=== PATIENT | female | born 1995 | race Caucasian/White ===

== ENCOUNTER 2020-10-27 12:56 | Emergency (ER) | payer OTHER, SELFPAY ==
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
[2020-10-27 13:03] VITALS: BP 131/70; PULSE 84; RESP 20; TEMP 36.8; O2SAT 99
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
[2020-10-27 14:54] VITALS: PULSE 80; RESP 20; O2SAT 100
== END 2020-10-27 14:40 | disposition home or self-care (01) ==
PROVIDERS: Emergency Provider Emergency Medicine; PCP Nurse Practitioner Family
DX: S16.1XXA Strain of muscle, fascia and tendon at neck level, initial encounter (principal); S40.012A Contusion of left shoulder, initial encounter; V43.02XA Car driver injured in collision with other type car in nontraffic accident, initial encounter
CPT/HCPCS: 72125; 73030; 99284

== ENCOUNTER → 2022-10-12 10:21 | Outpatient (CLI) | payer OTHER, SELFPAY ==
--- NOTE | ~2022-10-12 | US_ITS ---
EXAMINATION: US transvaginal DATE: 10/12/2022 10:44 INDICATION: IUD assessment TECHNIQUE: Multiple endovaginal sonographic images of the pelvis were obtained. COMPARISON: None. FINDINGS: The uterus measures 7.8 x 3.3 cm. The endometrial complex measures 3 mm. The IUD is in expe cted position. The right ovary measures 1.6 x 2.6 x 1.9 cm. The left ovary measures 3.9 x 4.4 x 3.7 c m. There is a 3.4 x 2.8 x 2.9 cm hemorrhagic cyst of the left adnexa. There is normal vascular flow i n the ovaries. There is small amount of likely physiologic free fluid in the pelvis. IMPRESSION: 1. IUD in expected position. Reviewed, dictated and finalized at location F.
== END ==
PROVIDERS: PCP Nurse Practitioner Family; Visit Provider Nurse Practitioner
DX: T83.32XA Displacement of intrauterine contraceptive device, initial encounter (principal)
CPT/HCPCS: 76830

== ENCOUNTER 2023-05-26 00:55 | Day surgery (SDC) | payer OTHER, SELFPAY ==
[2023-05-19 10:44] VITALS: BMI 21.9
--- NOTE | 2023-05-19 10:46 | PC.NURSE ---
Report to the Outpatient Waiting Room, entrance under the green pavilion located off [facility], at time _0830 _ on date _05/25/22_. Planned Procedure Time: 1030__. Time changes happen often and if your time is changed the preop area will call you the afternoon before. - You and your visitor will be asked to self-screen and do not enter if you have any COVID symptoms. - A mask is optional within the hospital at this time. Patients may have clear liquids (water, carbonated beverages, clear teas, apple juice) until 3 hours prior to surgery with a maximum of 20 ounces. - No food from midnight until time of surgery - Infants may have breast milk until 4 hours before surgery, formula 6 hours prior to surgery. - Children will be allowed to drink immediately following surgery. If applicable, please bring a bottle or sippy cup to assist with drinking. Juice, water, soda, and popsicles are readily available. For infants on formula, please bring formula the day of surgery. Pacifiers are allowed. Take the following medications with a SIP of water the morning of surgery: NONE DO NOT STOP ANY OF YOUR OTHER PRESCRIPTION MEDICATIONS PRIOR TO SURGERY ?EXCEPT THE FOLLOWING Medications to discontinue per physician VITAMIN/ SUPPLIMENTS Date to take last dose Please no make-up, nail [place] citizen, hairspray, perfume, deodorant, or body powder the day of surgery. No jewelry (including any body piercings) or valuables the day of surgery, leave them at home. Please take a shower or bath the night before, or the morning of, surgery with an antibacterial soap. Wear comfortable, loose fitting clothing. Children are encouraged to wear pajamas. - Jewelry must be removed prior to entering the operating room. Rings and piercings that are not removed may be cut off. - The hospital will not accept responsibility for valuables. - Please leave all valuables, including medications, at home the day of surgery. If you are going home after surgery, a licensed transit bus driver must drive you home. - NO public transportation without another adult if you receive anesthesia. - We recommend that an adult stay with you for 24 hours following discharge. - We also recommend that you do not drive, make important decision, drink alcoholic beverages, or take any drugs that were not prescribed by your health care provider for at least 24 hours after your discharge time. For Pediatric surgeries, we recommend two adults accompany the child home. Follow any additional instructions given to you from your surgeon. If you or anyone in your household have experienced Covid symptoms in the past week, please notify your surgeon or the nurse liaison at the phone number below for possible testing. Telephone instructions given to _PATIENT_and asked if any additional questions and then verbalized understanding. Patient advised to call surgeon office or pre surgery nurse liaison [phone] if any additional questions.
--- NOTE | 2023-05-26 07:06 | P.PNAN_ITS ---
Anes - Initial Pre Proc Eval Procedure: Operation Date: 05/26/23 10:30 Proposed Procedures p Hysteroscopy with Intrauterine Device Removal - Brenda Miller MD Date/Time: 05/26/23 07:07 Surgeon: Brenda Miller MD Pre Op Diagnosis: Retained IUD Patient Data Age: 27 Gender: F Height: 1.52 m Weight: 51 kg Allergies Allergy/AdvReac Type Severity Reaction Status Date / Time No Known Allergies Allergy Verified 05/19/23 10:39 Home Medications Medication Instructions Recorded Confirmed Type ibuprofen 600 mg tablet (IBU) 600 mg PO Q6H PRN pain #20 tabs 10/27/20 05/19/23 Rx [place] 1 cap PO DAILY 05/19/23 05/19/23 History Rhodiola 1 cap PO DAILY 05/19/23 05/19/23 History magnesium 250 mg tablet 250 mg PO DAILY 05/19/23 05/19/23 History vit#24-iron amino acid 1 tablet PO DAILY 05/19/23 05/19/23 History chelat-folic acid 30 mg-975 mcg tablet valerian root 100 mg capsule 100 mg PO DAILY 05/19/23 05/19/23 History vitamin B complex 1 tablet PO DAILY 05/19/23 05/19/23 History Patient hx anesthesia problems: none Family hx anesthesia problems: none Results Review: All pre-operative results and documents have been reviewed as part of the pre- operative evaluation. [facility] Past Medical History Medical History (Updated 05/26/23 @ 08:53 by Brenda Miller MD) Patient denies significant medical history Social History Social History (System 02/06/23 @ 12:15 by Ovidio Cerna) Smoking status: Never smoker Alcohol intake: current Alcohol use details: 1-2 PER MONTH Substance use: never Living arrangements: with family Anes - Eval Final PreProcedure Day of Procedure 05/26/23 07:07 Patient weight: normal Heart: regular rate and rhythm Lungs: clear to auscultation and normal air movement Airway: Mallampati scale class II Neurological: alert and oriented Last oral intake: >/= 8 hours ASA classification: I Emergent: no Anesthetic plan: proceed Anesthesia type and monitoring: general GIVS and standard monitoring Results Review: All pre-operative results and documents have been reviewed as part of the pre- operative evaluation. Informed Consent: The patient's anesthetic plan and its attendant risks and benefits were discussed with the patient/family/POA. Questions were solicited and answers provided to the satisfaction of the patient/family/POA.
--- NOTE | 2023-05-26 08:51 | P.HP_ITS ---
History of Present Illness History of Present Illness Consent: Risks, benefits, and alternatives have been discussed and questions answered. Patient agrees to proceed with procedure. Chief complaint: Retained IUD Narrative: Sinai Rene is a 27 year old female with retained IUD. Attempts to remove in the office were unsuccessful. It was recommended to undergo hysteroscopic removal. Risks of infection, bleeding and perforation are reviewed. Patient dionte oices understanding and agrees to proceed. [facility] Past Medical History Medical History (Updated 05/26/23 @ 08:53 by Brenda Miller MD) Patient denies significant medical history Social History Social History (System 02/06/23 @ 12:15 by Ovidio Cerna) Smoking status: Never smoker Alcohol intake: current Alcohol use details: 1-2 PER MONTH Substance use: never Living arrangements: with family Meds Home Medications and Allergies Home Medications Medication Instructions Recorded Confirmed Type ibuprofen 600 mg tablet (IBU) 600 mg PO Q6H PRN pain #20 tabs 10/27/20 05/19/23 Rx [place] 1 cap PO DAILY 05/19/23 05/19/23 History Rhodiola 1 cap PO DAILY 05/19/23 05/19/23 History magnesium 250 mg tablet 250 mg PO DAILY 05/19/23 05/19/23 History vit#24-iron amino acid 1 tablet PO DAILY 05/19/23 05/19/23 History chelat-folic acid 30 mg-975 mcg tablet valerian root 100 mg capsule 100 mg PO DAILY 05/19/23 05/19/23 History vitamin B complex 1 tablet PO DAILY 05/19/23 05/19/23 History Allergies Allergy/AdvReac Type Severity Reaction Status Date / Time No Known Allergies Allergy Verified 05/19/23 10:39 Exam Const: General: healthy appearing and alert Orientation/consciousness: patient oriented x3 Resp: Effort & Inspection: normal respiratory effort : External Female Exam: normal external appearance Speculum Exam - Vagina: normal appearance of the vagina and normal vaginal discharge Speculum Exam - Cervix: normal appearance of the cervix Bimanual exam- vagina & uterus: uterine size normal and consistency normal Bimanual Exam- Adnexa, other: normal adnexae and No adnexal tenderness Neuro: General: patient oriented x3 Assessment and Plan Assessment and plan (1) IUD strings lost: Code(s): T83.32XA - Displacement of intrauterine contraceptive device, initial encounter Status: Acute Assessment and Plan: plan to proceed with hysteroscopic removal of IUD
--- NOTE | 2023-05-26 08:51 | WPDHPUPDATE1 ---
History and Physical Update Update Date/Time: 05/26/23 08:51 History and Physical has been reviewed, including an updated exam of the patient. There are NO changes in the patient's condition. Risks, benefits, and alternatives have been discussed and questions answered. Patient agrees to proceed with procedure.
[2023-05-26] MEDS: ACETAMINOPHEN 500 MG TABLET 1000 MG PO (09:00)
[2023-05-26 09:30] VITALS: BP 127/81; PULSE 76; RESP 16; TEMP 37.1; O2SAT 100
[2023-05-26] MEDS: MIDAZOLAM HCL (*CRX) 2 MG/2 ML VIAL IV PUSH (09:30)
[2023-05-26] MEDS: LACTATED RINGERS 1,000 ML 30 ML IV CONT (09:45)
[2023-05-26 10:12] VITALS: BP 99/51; PULSE 63; RESP 14; O2SAT 100
--- NOTE | 2023-05-26 10:13 | W.PM.PROC2 ---
Procedure Note - Detailed Date of Procedure 05/26/23 Pre-op Diagnosis missing IUD strings Post-op Diagnosis Same Procedure Performed hysteroscopic IUD removal Surgeon Brenda Miller MD Anesthesia MAC Findings uterus sounds to 8cm IUD in proper position with the strings pointing upward Description of Procedure The patient is taken to the operating room and placed under anesthesia in the dorsal lithotomy position. She was prepped and draped in the usual sterile fashion. [place] speculum was placed in the vagina and the cervix grasped on the anterior lip with a tenaculum. The uterus is sounded to 8cm. The hysteroscope was placed and the IUD noted in its proper position. The strings were pointing upward. The strings were grasped with the hysteroscopic grasper and the IUD and hysteroscope were pulled out in 1 maneuver. The IUD is intact and discarded. All instruments are removed. Sponge, needle, and instrument counts are correct per the OR staff. The patient was awakened from anesthesia and taken to recovery in stable condition. Estimated Blood Loss 5 Drains No Packing No Pathology None sent Complications No immediate complications Condition Stable Disposition PACU
[2023-05-26 10:40] VITALS: BP 106/73; PULSE 84
[2023-05-26] MEDS: ONDANSETRON INJ 4 MG/2 ML VIAL IV PUSH (10:40)
[2023-05-26 11:10] VITALS: BP 110/67; PULSE 70
== END 2023-05-26 11:20 | disposition home or self-care (01) ==
PROVIDERS: Visit Provider Obstetrics & Gynecology Gynecology
PROC: 0U5B8ZZ Destruction of Endometrium, Via Natural or Artificial Opening Endoscopic (ICD-10-PCS; CPT 58563; principal; 2023-05-26 10:30)
DX: T83.32XA Displacement of intrauterine contraceptive device, initial encounter (principal); Z79.1 Long term (current) use of non-steroidal anti-inflammatories (NSAID); Y83.8 Other surgical procedures as the cause of abnormal reaction of the patient, or of later complication, without mention of misadventure at the time of the procedure
CPT/HCPCS: 58562; A9270; J2250; J2405; J2704; J3010; J7120